=== PATIENT | female | born 1980 | race Hispanic/Latino ===

== ENCOUNTER 2020-03-11 10:36 | Emergency (ER) | payer SELFPAY ==
[~2020-03-11] VITALS: Ht 157.5 cm; Wt 116.6 kg
[2020-03-11] MEDS ORDERED: ALBUTEROL SULFATE HFA 8GM INHALATION AEROSOL INH STA (10:53)
--- NOTE | 2020-03-11 11:12 | Emergency Department Note ---
History of Present Illnes History of Present Illness Chief Complaint: General Medicine Complaints History of Present Illness This is a 39 year old female pelvic pain for the prevoius 13 hours. Reports anal brown discharge. . Historian: Patient Arrival Mode: Car Onset (how long ago): hour(s) (13) Location: lower abdomen Radiation: Reports abdomen Severity: moderate Onset quality: sudden Duration (how long): hour(s) (13) Timing of current episode: constant Progression: worsening Chronicity: new Relieving factors: none Associated symptoms: Reports denies other symptoms Treatments prior to arrival: none Past Medical/Family History Physician Review I have reviewed the patient's past medical and family history. Any updates have been documented here. Past Medical History Recent Fever: No Clinical Suspicion of Infectio: No New/Unexplained Change in Ment: No Past Medical History: Hypertension, Diabetes, Depression Past Surgical History: Cholecysctectomy, Hysterectomy Social History Smoking Cessation: Never Smoker Alcohol Use: None Any Illegal Drug Use: No Review of Systems Review of Systems Constitutional: Denies fever EENTM: Reports no symptoms Cardiovascular: Reports no symptoms Respiratory: Reports no symptoms Gastrointestinal: Reports abdominal pain Genitourinary: Denies dysuria, Denies frequency, Denies hematuria, Denies pain Musculoskeletal: Reports no symptoms Integumentary: Reports no symptoms Neurological: Reports no symptoms Psychological: Reports no symptoms Endocrine: Reports no symptoms Hematological/Lymphatic: Reports no symptoms Physical Exam Related Data Allergies: Coded Allergies: lisinopril (Verified Adverse Reaction, Intermediate, COUGH, 03/11/20) Triage Vital Signs Vital Signs Date Time Temp Pulse Resp B/P (MAP) Pulse Ox O2 Delivery O2 Flow Rate FiO2 03/11/20 10:56 98.7 79 16 164/96 97 Vital signs reviewed: Yes Physical Exam CONSTITUTIONAL Constitutional: Present well-developed, Present well-nourished HENT HENT: Present normocephalic, Present atraumatic, Present oropharynx clear/moist, Present nose normal HENT L/R: Present left ext ear normal, Present right ext ear normal EYES Eyes: Reports PERRL, Reports conjunctivae normal NECK Neck: Present ROM normal PULMONARY Pulmonary: Present effort normal, Present breath sounds normal CARDIOVASCULAR Cardiovascular: Present regular rhythm, Present heart sounds normal, Present capillary refill normal, Present normal rate GASTROINTESTINAL Abdominal: Present soft, Present tender (SUPRAPUBIC) GENITOURINARY Genitourinary: Present exam deferred SKIN Skin: Present warm, Present dry MUSCULOSKELETAL Musculoskeletal: Present ROM normal NEUROLOGICAL Neurological: Present alert, Present oriented x 3, Present no gross motor or sensory deficits PSYCHOLOGICAL Psychological: Present mood/affect normal, Present judgement normal Results Laboratory Lab results reviewed: Yes Laboratory comments Laboratory Tests Test 03/11/20 13:20 03/11/20 12:00 Urine Color Yellow (YELLOW) Urine Clarity Clear (CLEAR) Urine pH 7 (5 - 7) Urine Specific [employer] 1.025 (1.010-1.025) Urine Protein Negative (NEGATIVE) Urine Glucose (UA) Negative (NEGATIVE) Urine Ketones Negative (NEGATIVE) Urine Blood Negative (NEGATIVE) Urine Nitrite Negative (NEGATIVE) Urine Bilirubin Negative (NEGATIVE) Urine Urobilinogen 0.2 mg/dL (0.2 - 1) Urine Leukocyte Esterase Negative (NEGATIVE) Urine RBC 0-5 /HPF (0-5) Urine WBC 0-5 /HPF (0-5) Urine Epithelial Cells Few /LPF (NONE) Urine Bacteria Few /HPF (NONE) Urine Test Negative (NEGATIVE) White Blood Count 12.06 x10e3/uL (4.8-10.8) Red Blood Count 4.68 x10e6/uL (3.6-5.1) Hemoglobin 13.0 g/dL (12.0-16.0) Hematocrit 39.7 % (34.2-44.1) Mean Corpuscular Volume 84.8 fL (81-99) Mean Corpuscular Hemoglobin 27.8 pg (28-32) Mean Corpuscular Hemoglobin Concent 32.7 g/dL (31-35) Red Cell Distribution Width 12.5 % (11.7-14.4) Platelet Count 392 x10e3/uL (140-360) Neutrophils (%) (Auto) 69.2 % (38.7-80.0) Lymphocytes (%) (Auto) 22.9 % (18.0-39.1) Monocytes (%) (Auto) 4.5 % (4.4-11.3) Eosinophils (%) (Auto) 2.6 % (0.0-6.0) Basophils (%) (Auto) 0.4 % (0.0-1.0) Neutrophils # (Auto) 8.4 (2.1-6.9) Lymphocytes # (Auto) 2.8 (1.0-3.2) Monocytes # (Auto) 0.5 (0.2-0.8) Eosinophils # (Auto) 0.3 (0.0-0.4) Basophils # (Auto) 0.1 (0.0-0.1) Absolute Immature Granulocyte (auto 0.05 x10e3/uL (0-0.1) Sodium Level 134 mmol/L (136-145) Potassium Level 3.4 mmol/L (3.5-5.1) Chloride Level 98 mmol/L (98-107) Carbon Dioxide Level 28 mmol/L (22-29) Anion Gap 11.4 mmol/L (8-16) Blood Urea Nitrogen 8 mg/dL (7-26) Creatinine 0.78 mg/dL (0.57-1.11) Estimat Glomerular Filtration Rate > 60 ML/MIN (60-) BUN/Creatinine Ratio 10 (6-25) Glucose Level 268 mg/dL (74-118) Calcium Level 9.6 mg/dL (8.4-10.2) Total Bilirubin 0.6 mg/dL (0.2-1.2) Aspartate Amino Transf (AST/SGOT) 36 IU/L (5-34) Alanine Aminotransferase (ALT/SGPT) 36 IU/L (0-55) Alkaline Phosphatase 95 IU/L (40-150) Total Protein 7.8 g/dL (6.5-8.1) Albumin 3.7 g/dL (3.5-5.0) Globulin 4.1 g/dL (2.3-3.5) Albumin/Globulin Ratio 0.9 (0.8-2.0) Imaging Imaging results reviewed: Yes Impressions [place] [id number] Patient Name: DHARA YAP MR #: [id number] : 1980 Age/Sex: 39/F Req #: [id number] Adm Physician: Ordered by: TAMMI ALVES DO Report #: [id number] Location: ER Room/Bed: Procedure: [id number] CT/CT ABDOMEN/PELVIS W Exam Date: 03/11/20 Exam Time: 1245 REPORT STATUS: Signed EXAM: CT Abdomen and Pelvis WITH contrast INDICATION: SUPRAPUBIC PAIN COMPARISON: None. TECHNIQUE: Abdomen and pelvis were scanned utilizing a multidetector helical scanner from the lung base to the pubic symphysis after administration of IV contrast. Coronal and sagittal reformations were obtained. Dose modulation, iterative reconstruction, and/or weight based adjustment of the mA/kV was utilized to reduce the radiation dose to as low as reasonably achievable. Routine protocol was performed. Scan was performed when during portal venous phase. IV CONTRAST: 150 mL of Omnipaque 300 ORAL CONTRAST: Water COMPLICATIONS: None RADIATION DOSE: Total DLP: 830.5 mGy-cm Estimated effective dose: (DLP x 0.015 x size factor) mSv CTDIvol has been reviewed. It is below the limits set by the Radiation Protocol Committee (RPC). FINDINGS: LINES and TUBES: None. LOWER THORAX: Unremarkable HEPATOBILIARY: The liver is diffuse hypodense compared to the spleen, consistent with diffuse hepatic diffuse hepatic steatosis. No focal hepatic lesions. No biliary ductal dilation. GALLBLADDER: There are cholecystectomy clips. SPLEEN: No splenomegaly. No focal splenic lesion. PANCREAS: No focal masses or ductal dilatation. ADRENALS: No adrenal nodules KIDNEYS/URETERS: Kidneys enhance symmetrically. No hydronephrosis. There are left subcentimeter cortical low-density lesions too small to characterize. No stones. GI TRACT: No abnormal distention or evidence of bowel obstruction. Multiple diverticula are seen within the sigmoid colon. There is a mild wall thickening of the distal sigmoid colon with small degree of inflammatory stranding seen. PELVIC ORGANS/BLADDER: The bladder is unremarkable. LYMPH NODES: No lymphadenopathy. VESSELS: No aortic aneurysm or dissection. PERITONEUM / RETROPERITONEUM: Small amount of free fluid in the pelvis. BONES: Unremarkable. SOFT TISSUES: Unremarkable. IMPRESSION: Findings are consistent with very mild diverticulitis of distal sigmoid colon. Signed by: Scott Martinez MD on 03/11/2020 1:28 PM Dictated By: SCOTT MARTINEZ MD [id number] Transcribed By: SJ on 03/11/20 1328 COPY TO: TAMMI ALVES DO~ Assessment & Plan Medical Decision Making MDM 39 yof with abdominal pain. CBC, CMP, UA and CTS ordered to r/o appendicitis, diverticulitis, UTI, kidney stone, perforated viscus, obstruction, ischemia, and biliary pathology. Plan to discharge to home with Rx Cipro, Zofran, tylenol #3, Flagyl Assessment & Plan Final Impression: (1) Diverticulitis Depart Disposition: HOME, SELF-CARE Last Vital Signs Date Time Temp Pulse Resp B/P (MAP) Pulse Ox O2 Delivery O2 Flow Rate FiO2 03/11/20 10:56 98.7 79 16 164/96 97 Medications in the ED Sodium Chloride 50 ml @ ud STK-MED ONCE .ROUTE ; Start 03/11/20 at 12:44; Stop 03/11/20 at 12:39; Status DC Iopamidol 74,000 mg STK-MED ONCE INJ ; Start 03/11/20 at 12:44; Stop 03/11/20 at 12:39; Status DC TAMMI AVLES DO Mar 11, 2020 11:12
[2020-03-11 12:08] LABS: BASOPHILS # (AUTO) 0.1 (0.0-0.1); BASOPHILS % 0.4 % (0.0-1.0); EOSINOPHILS # (AUTO) 0.3 (0.0-0.4); EOSINOPHILS % 2.6 % (0.0-6.0); HEMATOCRIT 39.7 % (34.2-44.1); LYMPHOCYTES # (AUTO) 2.8 (1.0-3.2); LYMPHOCYTES % 22.9 % (18.0-39.1); MEAN CORPUSCULAR HEMOGLOBIN 27.8 pg (28-32); MEAN CORPUSCULAR HGB CONC 32.7 g/dL (31-35); MEAN CORPUSCULAR VOLUME 84.8 fL (81-99); MONOCYTES # (AUTO) 0.5 (0.2-0.8); MONOCYTES % 4.5 % (4.4-11.3); NEUTROPHILS # (AUTO) 8.4 (2.1-6.9); NEUTROPHILS % 69.2 % (38.7-80.0); PLATELET COUNT 392 x10e3/uL (140-360); RED BLOOD COUNT 4.68 x10e6/uL (3.6-5.1); RED CELL DISTRIBUTION WIDTH 12.5 % (11.7-14.4)
[2020-03-11 12:24] LABS: ALANINE AMINOTRANSFERASE 36 IU/L (0-55); ALBUMIN 3.7 g/dL (3.5-5.0); ALBUMIN/GLOBULIN RATIO 0.9 (0.8-2.0); ALKALINE PHOSPHATASE 95 IU/L (40-150); ANION GAP 11.4 mmol/L (8-16); BLOOD UREA NITROGEN 8 mg/dL (7-26); BUN/CREATININE RATIO 10 (6-25); CALCIUM 9.6 mg/dL (8.4-10.2); CARBON DIOXIDE 28 mmol/L (22-29); CHLORIDE 98 mmol/L (98-107); CREATININE, SERUM 0.78 mg/dL (0.57-1.11); EST GLOMERULAR FILTRATION RATE > 60 ML/MIN (60-); GLUCOSE 268 mg/dL (74-118); POTASSIUM 3.4 mmol/L (3.5-5.1); SODIUM 134 mmol/L (136-145)
[2020-03-11] MEDS ORDERED: IOPAMIDOL 370 MG/ML 200 ML INFUS..BTL INJ ONE (12:44)
[2020-03-11] MEDS ORDERED: SODIUM CHLORIDE 0.9% 50ML 50 ML ONE (12:44)
--- NOTE | 2020-03-11 13:31 | Diagnostic Imaging Report ---
EXAM: CT Abdomen and Pelvis WITH contrast INDICATION: SUPRAPUBIC PAIN COMPARISON: None. TECHNIQUE: Abdomen and pelvis were scanned utilizing a multidetector helical scanner from the lung base to the pubic symphysis after administration of IV contrast. Coronal and sagittal reformations were obtained. Dose modulation, iterative reconstruction, and/or weight based adjustment of the mA/kV was utilized to reduce the radiation dose to as low as reasonably achievable. Routine protocol was performed. Scan was performed when during portal venous phase. IV CONTRAST: 150 mL of Omnipaque 300 ORAL CONTRAST: Water COMPLICATIONS: None RADIATION DOSE: Total DLP: 830.5 mGy-cm Estimated effective dose: (DLP x 0.015 x size factor) mSv CTDIvol has been reviewed. It is below the limits set by the Radiation Protocol Committee (RPC). FINDINGS: LINES and TUBES: None. LOWER THORAX: Unremarkable HEPATOBILIARY: The liver is diffuse hypodense compared to the spleen, consistent with diffuse hepatic diffuse hepatic steatosis. No focal hepatic lesions. No biliary ductal dilation. GALLBLADDER: There are cholecystectomy clips. SPLEEN: No splenomegaly. No focal splenic lesion. PANCREAS: No focal masses or ductal dilatation. ADRENALS: No adrenal nodules KIDNEYS/URETERS: Kidneys enhance symmetrically. No hydronephrosis. There are left subcentimeter cortical low-density lesions too small to characterize. No stones. GI TRACT: No abnormal distention or evidence of bowel obstruction. Multiple diverticula are seen within the sigmoid colon. There is a mild wall thickening of the distal sigmoid colon with small degree of inflammatory stranding seen. PELVIC ORGANS/BLADDER: The bladder is unremarkable. LYMPH NODES: No lymphadenopathy. VESSELS: No aortic aneurysm or dissection. PERITONEUM / RETROPERITONEUM: Small amount of free fluid in the pelvis. BONES: Unremarkable. SOFT TISSUES: Unremarkable. IMPRESSION: Findings are consistent with very mild diverticulitis of distal sigmoid colon. Signed by: Scott Kiser MD on 03/11/2020 1:28 PM
[2020-03-11 13:34] LABS: BILIRUBIN,URINE NEGATIVE (NEGATIVE); CLARITY,URINE CLEAR (CLEAR); COLOR,URINE YELLOW (YELLOW); KETONES,URINE NEGATIVE (NEGATIVE); LEUKOCYTE ESTERASE ,URINE NEGATIVE (NEGATIVE); NITRITE,URINE NEGATIVE (NEGATIVE); PROTEIN,URINE DIPSTICK NEGATIVE (NEGATIVE); URINE UROBILINOGEN 0.2 mg/dL (0.2 - 1)
[2020-03-11 13:38] LABS: PREGNANCY TEST, URINE NEGATIVE (NEGATIVE)
[2020-03-11 13:39] LABS: BACTERIA,URINE FEW /HPF; EPITHELIAL CELLS,URINE FEW /LPF; RBC,URINE 0-5 /HPF (0-5); WBC,URINE (MAN) 0-5 /HPF (0-5)
== END 2020-03-11 14:50 | disposition home or self-care (01) ==
LOC: ER 10:36
DX: R10.2 Pelvic and perineal pain (principal); K57.32 Diverticulitis of large intestine without perforation or abscess without bleeding; I10 Essential (primary) hypertension; E11.9 Type 2 diabetes mellitus without complications; F32.9 Major depressive disorder, single episode, unspecified
CPT/HCPCS: 36415; 74177; 80053; 81001; 81025; 85025; 99284; Q9967